=== PATIENT | female | born 2000 | race Caucasian/White ===

== ENCOUNTER 2020-04-19 22:13 | Emergency (ER) | payer OTHER ==
[2020-04-19 22:18] VITALS: TEMP 98.4; BMI 34.9
[2020-04-19] MEDS ORDERED: DEXAMETHASONE SOD PHOSPHATE 10 MG/1 ML VIAL IM ONE (22:22)
--- NOTE | 2020-04-19 22:22 | PDOC ---
Rapid Medical Evaluation Chief Complaint: Allergic Reaction Time Seen by Provider: 04/19/20 22:19 Medical Evaluation: Vital Signs Temp Pulse Resp BP Pulse Ox 98.4 F 144 H 20 142/76 97 04/19/20 22:15 04/19/20 22:15 04/19/20 22:15 04/19/20 22:15 04/19/20 22:15 04/19/20 22:20 I have performed a brief in-person evaluation of this patient. The patient presents with a chief complaint of: Patient present with feeling of allergic reaction throat closing status post eating edible with marijuana which had macadamia nuts. Patient reported allergy to nuts. Denies any other symptoms Pertinent physical exam findings: Oropharynx patent with patient very anxious. Pupil dilated bilateral . patient in no acute respiratory distress I have ordered the following: decadron, Benadryl The patient will proceed to the ED for further evaluation. Discharge Disposition - Diagnosis Allergic reaction Qualifiers: Encounter type: initial encounter Qualified Code(s): T78.40XA - Allergy, unspecified, initial encounter - Discharge Dispostion Condition at time of disposition: Stable - Referrals - Patient Instructions - Post Discharge Activity
--- OUTSIDE RECORDS SUMMARY | 2020-04-19 22:31 | XMS ---
:2000 Author Organization [facility] Care Team Providers Name Role Phone Mir John Unavailable [phone] Jaiden Johner Unavailable [phone] Jessica, Joanna R Unavailable [phone] Jessica, R Unavailable [phone] Jessica, R Unavailable [phone] Jessica, R Unavailable [phone] Hubert Unavailable [email or web address] Hubert Unavailable [email or web address] Hubert Unavailable [email or web address] Hubert Unavailable [email or web address] Kovoor Unavailable Unavailable Kovoor Unavailable Unavailable Kovoor Unavailable Unavailable Kovoor Unavailable Unavailable Kovoor Unavailable Unavailable Kovoor Unavailable Unavailable Kovoor Unavailable Unavailable Kovoor Unavailable Unavailable Kovoor Unavailable Unavailable Kovoor Unavailable Unavailable Kovoor Unavailable Unavailable Tagne Nouemssi Unavailable [phone] Tagne Nouemssi Unavailable [phone] Mikayla Unavailable Unavailable Unavailable Unavailable Julien Unavailable [phone] Julien Unavailable [phone] Ringstad Unavailable Unavailable Ringstad Unavailable Unavailable Ringstad Unavailable Unavailable Ringstad Unavailable Unavailable Ringstad Unavailable Unavailable Ringstad Unavailable Unavailable Ringstad Unavailable Unavailable Ringstad Unavailable Unavailable Ringstad Unavailable Unavailable Ringstad Unavailable Unavailable Ringstad Unavailable Unavailable Davide Unavailable [phone] Davide Unavailable [phone] Radha Unavailable Unavailable Radha Unavailable Unavailable Radha Unavailable Unavailable Radha Unavailable Unavailable Re-disclosure Warning The records that you are about to access may contain information from federally- assisted alcohol or drug abuse programs. If such information is present, then the following federally mandated warning applies: This information has been disclosed to you from records protected by federal confidentiality rules (42 CFR part 2). The federal rules prohibit you from making any further disclosure of this information unless further disclosure is expressly permitted by the written consent of the person to whom it pertains or as otherwise permitted by 42 CFR part 2. A general authorization for the release of medical or other information is NOT sufficient for this purpose. The Federal rules restrict any use of the information to criminally investigate or prosecute any alcohol or drug abuse patient.The records that you are about to access may contain highly sensitive health information, the redisclosure of which is protected by Article 27-F of the [facility] Public Health law. If you continue you may haveaccess to information: Regarding HIV / AIDS; Provided by facilities licensed or operated by the [facility] Office of Mental Health; or Provided by the [facility] Office for People With Developmental Disabilities. If such information is present, then the following [facility] mandated warning applies: This information has been disclosed to you from confidential records which are protected by state law. State law prohibits you from making any further disclosure of this information without the specific written consent of the person to whom it pertains, or as otherwise permitted by law. Any unauthorized further disclosure in violation of state law may result in a fine or custodial sentence or both. A general authorization for the release of medical or other information is NOT sufficient authorization for further disclosure. Allergies and Adverse Reactions Type Description Substance Reaction Status Data Source(s ) Propensity to Propensity to Propensity to NEXTG EN ([facility] adverse reactions adverse reactions adverse reactions [facility] (disorder) (disorder) (disorder) [place]) Family History Family Member Family Member Family Member Date of Description Data Source(s) Name Gender Status Status Unknown Male Diagnosis 10/01/2013 NEXTGEN ([facility] 12:00:00 AM [facility] Medic al [facility]) Encounters Encounter Providers Location Date Indications Data Source(s ) Attender: [facility] 02/18/2019 NEXTGEN ([facility] 01:55:00 [facility]T - Center) 02/18/2019 01:55:00 PM EDT Outpatient 02/15/2019 [facility] 09:35:00 Medical Center AM EDT Outpatient 02/15/2019 [facility] 12:00:00 Medical Center AM EDT Attender: [facility] 11/03/2018 NEXTGEN ([facility] 02:52:00 [facility] PM EDT - Center) 11/03/2018 02:52:00 PM EDT OutpatientOFFICE/ Attender: [facility] 06/30/2018 NEXTGEN ([facility] VISIT, [facility] 03:44:00 [facility] EST PM EST - Center) 06/30/2018 03:44:00 PM EST Attender: Jessi 01/13/2018 NEXT ([facility] 10:10:00 [facility] AM EDT - Center) 01/13/2018 10:10:00 AM [facility] 10/26/2017 DANIELLE N ([facility] 06:05:00 [facility] Nouemssi PM EDT - Center) 10/26/2017 06:05:00 PM EDT Attender: [facility] 10/14/2017 NEXTGEN ([facility] 05:16:00 [facility] PM EDT - Center) 10/14/2017 05:16:00 PM EDT Attender: [facility] ([place], [place]) 02/23/2017 SHEREEN EN ([facility] 03:25:00 [facility] PM EDT - Center) 02/23/2017 03:25:00 PM EDT Attender: [facility] 01/07/2017 NEXTGEN ([facility] 06:02:00 [facility] PM EDT - Center) 01/07/2017 06:02:00 PM EDT Attender: [facility] 11/01/2016 NEXT [facility] 10[facility] AM [facility]T - Center) 11/01/2016 10:34:00 AM EDT [facility] 09/30/2014 DANIELLE N ([facility] 10:47:00 [facility] AM EST - Center) 09/30/2014 10:47:00 AM [facility] 10/[facility] NEXTGE N ([facility] 11:03:00 [facility] AM EDT - Center) 10/29/2013 11:03:00 AM EDT Attender: [facility] 10/01/2013 NEXTGE N ([facility] 11:01:00 [facility] AM EST - Center) 10/01/2013 11:01:00 AM EST Attender: [facility] 03/25/2013 NEXTGE N ([facility] 11:27:00 [facility] AM EDT - Center) 03/25/2013 11:27:00 AM EDT Attender: [facility] 10/27/2012 NEXTGE N ([facility] 01:48:00 [facility] PM EDT - Center) 10/27/2012 01:48:00 PM EDT Attender: [facility] 03/20/2012 NEXTGE N ([facility] 02:34:00 [facility] PM EDT - Center) 03/20/2012 02:34:00 PM EDT Attender: [facility] 10/11/2011 NEXTGE N ([facility] 10:55:00 [facility] AM EST - Center) 10/11/2011 10:55:00 AM EST Attender: [facility] 06/21/2011 NEXTGE N ([facility] 10:23:00 [facility] AM EST - Center) 06/21/2011 10:23:00 AM EST Attender: [facility] 03/19/2011 NEXTGE N ([facility] 01:59:00 [facility] PM EDT - Center) 03/19/2011 01:59:00 PM EDT Attender: [facility] 03/05/2011 NEXTGEN ([facility] 08[facility] AM [facility]T - Center) 03/05/2011 08:28:00 AM EDT Attender: [facility] 03/29/2010 NEXTGE N ([facility] 02:43:00 [facility] PM EDT - Center) 03/29/2010 02:43:00 PM EDT Attender: [facility] 10/12/2009 NEXTGE N ([facility] 04:05:00 [facility] PM EST - Center) 10/12/2009 04:05:00 PM EST [facility] 10/14/2008 NEXTGE N ([facility] 09:04:00 [facility] AM EDT - Center) 10/14/2008 09:04:00 AM EDT Immunizations Vaccine Date Status Description Data Source(s) New in 2011. IIV4 06/30/2018 completed Influenza, Injectable, NEXTGEN ([facility] 12:00:00 AM EST Quadrivalent [facility]) Source: New Immunization Record New in 2011. 10/14/2017 12:00:00 completed Influenza, injectable , NEXTGEN ([facility] IIV4 AM EDT quadrivalent, [facility] preservative free, 3 Center) yrs or older Source: New Immunization Record Meningococcal MCV4O 01/07/2017 12:00:00 completed Meningococcal [facility]O [facility] Source: New Immunization Record meningococcal MCV4P 09/30/2014 12:00:00 AM EST completed MCV4 NEXTGEN ([facility]) Source: New Immunization Record IIV3. This vaccine 09/30/2014 12:00:00 completed Influenza PF 3+ NEXTGEN ([facility] code is one of two AM EST years [facility] which replace CVX Center) 15, influenza, split virus. Source: New Immunization Record IIV3. This is one of 10/01/2013 12:00:00 completed Flu (split) ( 3 NEXTGEN ([facility] two codes replacing AM EST yrs or older) [facility] Medical CVX 15, which is Center) being retired. Source: New Immunization Record IIV3. This is one of 10/27/2012 12:00:00 completed Flu (split) ( 3 NEXTGEN ([facility] two codes replacing AM EDT yrs or older) [facility] Medical CVX 15, which is Center) being retired. Source: New Immunization Record HPV, quadrivalent 10/11/2011 12:00:00 AM EST completed HPV NEXTGEN ([facility]) Source: New Immunization Record IIV3. This is one of 06/21/2011 12:00:00 completed Flu (split) ( 3 NEXTGEN ([facility] two codes replacing AM EST yrs or older) [facility] CVX 15, which is Center) being retired. Source: New Immunization Record HPV, quadrivalent 06/21/2011 12:00:00 AM EST completed HPV NEXTGEN ([facility]) Source: New Immunization Record meningococcal MCV4P 03/19/2011 12:00:00 completed MCV4 (11-55 yr s) NEXTGEN ([facility] AM T [facility]) Source: New Immunization Record Tdap 03/19/2011 12:00:00 AM EDT completed Tdap N EXTGEN ([facility]) Source: New Immunization Record Hep A, ped/adol, 2 03/19/2011 12:00:00 completed Hep A (ped/adol , 2 NEXTGEN ([facility] dose AM EDT dose) [facility]) Source: New Immunization Record HPV, quadrivalent 03/19/2011 12:00:00 AM EDT completed HPV NEXTGEN ([facility]) Source: New Immunization Record Hep A, ped/adol, 2 03/29/2010 12:00:00 completed Hep A (ped/adol , 2 NEXTGEN ([facility] dose AM EDT dose) [facility]) Source: New Immunization Record This code is used 10/12/2009 12:00:00 completed H1N1 injection N EXTGEN ([facility] whenever the actual [facility] formulation is not Center) determined or when aggregating all Novel H1N1 Influenza-09 immunizations for reporting to [facility]. It should not be used for seasonal influenza vaccine that is not otherwise specified. (NOS) Source: New Immunization Record varicella 10/14/2008 12:00:00 AM EDT completed varicella N EXTGEN ([facility]) Source: New Immunization Record DTaP 02/02/2004 12:00:00 AM completed diphtheria, tetanu s NEXTGEN ([facility] toxoids and acellular [facility] pertussis vaccine Center) Source: Other Registry MMR 02/02/2004 12:00:00 AM EDT completed measles, mumps and NEXTGEN ([facility] rubella virus vaccine Medica l Center) Source: Other Registry IPV 02/02/2004 12:00:00 AM completed poliovirus vaccine , NEXTGEN ([facility] inactivated [facility]) Source: Other Registry Hib, unspecified 05/18/2003 12:00:00 completed Haemophilus NEXT GEN ([facility] formulation AM EDT influenzae type b [facility] dical vaccine, conjugate Center) unspecified formulation Source: Other Registry DTaP 05/05/2001 12:00:00 AM completed diphtheria, tetanu s NEXTGEN ([facility] EDT toxoids and acellular [facility] pertussis vaccine Center) Source: Other Registry Pneumococcal 05/05/2001 12:00:00 completed pneumococcal NEXTGEN ([facility] conjugate PCV 13 AM EDT conjugate vaccine, [place] [address] valent Center) Source: Other Registry IPV 05/05/2001 12:00:00 AM completed poliovirus vaccine , NEXTGEN ([facility] inactivated [facility]) Source: Other Registry MMR 03/26/2001 12:00:00 AM EDT completed MMR N EXTGEN ([facility]) Source: Other Registry varicella 03/26/2001 12:00:00 AM EDT completed Varicella N EXTGEN ([facility]) Source: Other Registry This code applies 2000 completed hepatitis B vaccine, NE XTGEN to any standard 12:00:00 AM EDT pediatric or ([facility] pediatric pediatric/adolescent [facility] Hepatitis B Center) vaccine. It should not be used for the 2-dose hepatitis B schedule for adolescents (11-15 year olds). It requires Merck's Recombivax HB adult formulation. Use code 43 for that vaccine. Source: Other Registry Hib, unspecified 2000 12:00:00 completed Haemophilus NEXT GEN ([facility] formulation AM EDT influenzae type b [facility] dical vaccine, conjugate Center) unspecified formulation Source: Other Registry Pneumococcal 2000 12:00:00 completed pneumococcal NEXTGEN ([facility] conjugate PCV 13 AM EDT conjugate vaccine, [facility] 13 valent Center) Source: Other Registry DTaP 2000 12:00:00 AM completed diphtheria, tetanu s NEXTGEN ([facility] EST toxoids and acellular [facility] pertussis vaccine Center) Source: Other Registry Pneumococcal 2000 12:00:00 completed pneumococcal NEXTGEN ([facility] conjugate PCV 13 AM EST conjugate vaccine, [facility] 13 valent Center) Source: Other Registry DTaP 2000 12:00:00 AM completed diphtheria, tetanu s NEXTGEN ([facility]) Source: Other Registry This code applies 2000 completed hepatitis B vaccine, NE XTGEN to any standard 12:00:00 AM EST pediatric or ([facility] pediatric pediatric/adolescent [facility] Hepatitis B Center) vaccine. It should not be used for the 2-dose hepatitis B schedule for adolescents (11-15 year olds). It requires Merck's Recombivax HB adult formulation. Use code 43 for that vaccine. Source: Other Registry Hib, unspecified 2000 12:00:00 completed Haemophilus NEXT GEN ([facility] formulation AM EST influenzae type b [facility] dical vaccine, conjugate Center) unspecified formulation Source: Other Registry pneumococcal 2000 12:00:00 completed pneumococcal NEXTGEN ([facility] conjugate PCV 7 AM EST conjugate vaccine, [address] [place] [address] valent Center) Source: Other Registry IPV 2000 12:00:00 AM completed poliovirus vaccine , NEXTGEN ([facility] EST inactivated [facility]) Source: Other Registry DTaP 2000 12:00:00 AM completed DTaP (younger than 7 [facility] ([facility] EDT yrs) Medical [place]) Source: Other Registry This code applies to 2000 12:00:00 completed Hep B (ped/ad ol, 3 NEXTGEN ([facility] any standard AM EDT dose) [facility] pediatric formulation [place] ) of Hepatitis B vaccine. It should not be used for the 2-dose hepatitis B schedule for adolescents (11-15 year olds). It requires Merck's Recombivax HB adult formulation. Use code 43 for that vaccine. Source: Other Registry Hib (PRP-T) 2000 12:00:00 AM completed Haemophilus influe nzae NEXTGEN ([facility] EDT type b vaccine, PRP-T [facility] conjugate [place]) Source: Other Registry IPV 2000 12:00:00 AM EDT completed Polio, Inactiv e [facility] ([facility]) Source: Other Registry Medications Medication Brand Start Product Dose Route Administrative Pharmacy [facility] Indications Reaction Description Data Name Date Form Instructions Instructions Source(s) ferrous ferrou .00 ORAL active take 1 NEXT GEN sulfate 325 s 2018 {tbl} tablet by (S aint MG Oral sulfat 12:00: oral route Ellie sephs Tablet e 325 00 AM every day Medica l ferrous mg (65 EST Center) sulfate 325 mg mg (65 mg iron) iron) tablet tablet ferrous ferrou .00 ORAL complet take 1 NEX TGEN sulfate 325 s 2017 {tbl} ed tablet by (S aint MG Oral sulfat 12:00: oral route Ellie sephs Tablet e 325 00 AM every day Medica l ferrous mg (65 EDT Center) sulfate 325 mg mg (65 mg iron) iron) tablet tablet Ortho-Cycle {21 .00 ORAL complet Ortho-Cy clen NEXTGEN n (28) 0.25 (Ethin 2017 {tbl} ed 28 Day Pac k ([facility] mg-35 mcg yl 12:00: [facility] tablet Estrad 00 AM Medical iol EDT Center) 0.035 MG / norges timate 0.25 MG Oral Tablet ) / 7 (Inert Ingred ients 1 MG Oral Tablet ) } Pack Clindamycin clinda TOPICA complet appl y gram NEXTGEN 0.01 MG/MG mycin 2016 gram L ed by topical (S aint Topical Gel 1 % 12:00: route 2 Triston ephs clindamycin topica 00 AM times ever y Medical 1 % topical l gel EDT day a thin C enter) gel layer to the affected area(s) 200 ACTUAT Ventol 01/07/ active 200 ACTU AT NEXTGEN Albuterol in HFA 2016 Albuterol (Sa int 0.09 90 12:00: 0.09 [facility] MG/ACTUAT mcg/ac 00 AM MG/ACTUAT Me dical Metered tuatio EDT Metered Dose Ce nter) Dose n Inhaler Inhaler aeroso [Ventolin] [Ventolin] l Ventolin inhale HFA 90 r mcg/actuati on aerosol inhaler Ibuprofen ibupro ORAL complet take 1 N EXTGEN 400 MG Oral fen 2016 {tbl} ed tablet by (S aint Tablet 400 mg 12:00: oral route Triston ephs ibuprofen tablet 00 AM every 4 - 6 Medical 400 mg EDT hours as Center) tablet needed Clindamycin Cleoci 10/29/ TOPICA complet Clin damycin NEXTGEN 0.01 MG/MG n T 1 2013 L ed 0.01 MG/MG (S aint Topical Gel % 12:00: Topical Gel [facility] [Cleocin-T] topica 00 AM [Cleocin-T ] Medical Cleocin T 1 l gel EDT Center) % topical gel Benzoyl benzoy 10/29/ TOPICA complet wash by NEXTGEN Peroxide 50 l 2013 ed topical ([facility] t MG/ML peroxi 12:00: route 2 [facility] Medicated de 5 % 00 AM times every Medical Liquid Soap topica EDT day the [address]) benzoyl l affected peroxide 5 cleans area(s) % topical er cleanser Insurance Providers Payer name Policy type Policy ID Covered Covered green party's Policy P romaine / Coverage green party ID relationship to Gracia Inf ormation type gracia AFFINITY [id number] SP [id number] ESSENTIAL PLAN 1 2 AFFINITY O [id number] HEALTH PLAN Problems, Conditions, and Diagnoses Code Display Name Description Problem Type Effective Dates Data Source(s) 56659061 Iron deficiency Iron deficiency Problem 10/26/2017 NEXT GEN ([facility] anemia anemia 12:00:[address] [facility]) [id number] Obesity Obesity Problem 01/07/2017 NEXTGEN ([facility] 12:00:00 AM [facility]) [id number] Scoliosis Scoliosis Problem 01/07/2017 NEXTGEN ([facility] deformity of deformity [facility]) Surgeries/Procedures Procedure Description Date Indications Data Source(s) OFFICE/OUTPATIENT VISIT, 06/30/2018 NEX TGEN ([facility] EST 12:00:00 AM EST [facility] - 06/30/2018 [place]) 12:00:00 AM EST Influenza, Injectable, 3 06/30/2018 NEX TGEN ([facility] Yrs Or Older 12:00:00 AM [facility] - 06/30/2018 [place]) 12:00:00 AM EST Immunization 06/30/2018 NEXTGEN ([facility] Administration 12:00:00 AM EST [facility] dical - 06/30/2018 [place]) 12:00:00 AM EST Social History Code Duration Value Status Description Data Source(s ) Caffeine Use 06/30/2018 completed NEXTGEN (Pro nt Details 12:00:00 AM EST [facility]) Smoking 06/30/2018 Unknown if completed Unknown if ever NEXTGEN ( [facility] 12:00:00 AM EST ever smoked smoked [facility]) Smoking Unknown if completed Unknown if ever Psychiatric ever smoked smoked Medical Cente r Alcohol Use completed NEXTGEN ([facility] t Details [facility] Medica l Center) Vital Signs ID Date Data Source UNK Name Value Range Interpretation Code Description Data Source(s) Oxygen saturation 97 % 97 % [facility] ([facility] in Arterial blood [facility] by Pulse oximetry Center) Body mass index 98 % 98 % [facility] (BMI) [Percentile] [facility] Per age and gender Center ) Body mass index 38.68 kg/m2 Overweight 38.68 kg/m2 [facility] (BMI) [Ratio] [facility]) Respiratory rate 20 /min 20 /min [facility] ([facility]) Body temperature 37.17 Ratna 37.17 Ratna [facility] ([facility]) Heart rate 88 /min 88 /min [facility] ([facility]) Diastolic blood 71 mm[Hg] 71 mm[Hg] [facility] ( [facility] pressure [facility]) Systolic blood 139 mm[Hg] 139 mm[Hg] [facility] ( aint [facility]) Body weight 102.149 kg 102.149 kg [facility] ([facility]) Body height 162.51 cm 162.51 cm [facility] ([facility]) Patient Treatment Plan of Care Planned Activity Planned Date Details Description Data Source (s) ferrous sulfate 325 MG 06/30/2018 12:00:00 [facility] ([facility] Oral Tablet [facility]) ferrous sulfate 325 MG 10/26/2017 12:00:00 [facility] ([facility] Oral Tablet [facility]) Ortho-Cyclen (28) 0.25 10/14/2017 12:00:00 [facility] mg-35 mcg tablet [facility]) 200 ACTUAT Albuterol 01/07/2017 12:00:00 NEXTGEN ([facility] 0.09 MG/ACTUAT Metered AM T [facility]et hs Medical Dose Inhaler [Ventolin] Cent er) Ibuprofen 400 MG Oral 01/07/2017 12:00:00 [facility] ([facility] Tablet [facility]) Clindamycin 0.01 MG/MG 01/07/2017 12:00:00 [facility] ([facility] Topical Gel [facility]) Clindamycin 0.01 MG/MG 10/29/2013 12:00:00 NEXTGEN ([facility] Topical Gel [Cleocin-T] AM [facility]) Benzoyl Peroxide 50 10/29/2013 12:00:00 N EXTGEN ([facility] MG/ML Medicated Liquid [facility])
--- NOTE | 2020-04-19 22:51 | PDOC ---
History of Present Illness - General Chief Complaint: Allergic Reaction Stated Complaint: ALLERGIC REACTION Time Seen by Provider: 04/19/20 22:19 - History of Present Illness Initial Comments: HPI Pt is a 20yo F with PMH asthma who presents with throat swelling. Pt states that she used a marijuana edible made of chocolate and macadamia nuts that she received from her brother at 7:50pm. States that two hours later, her throat felt like it was tight and she reported tachypnea and felt SOB. Currently states that she still feels like her throat is tight, but denies tachypnea and SOB. States that she took 2 Benadryl [employer] with minimal improvement in symptoms. States that she has had macadamia nuts in the past without any reaction. Denies f/c, chest pain, SOB, abdominal pain, n/v/d, itchiness, lightheadedness, dizziness PCP: denies PMH: asthma Meds: denies Allergies: NKDA Social: denies tobacco, etoh use. Denies other illicit substance use. Review of Systems CONSTITUTIONAL: denies fever, chills, diaphoresis, generalized weakness, malaise, loss of appetite HEENT: reports throat swelling; denies rhinorrhea, nasal congestion, sore throat, difficulty swallowing, mouth swelling, ear pain, eye pain, visual changes, vocal changes CARDIOVASCULAR: reports palpitations; denies chest pain, syncope, irregular heart rate, lightheadedness, peripheral edema RESPIRATORY: denies cough, shortness of breath, wheezing, hemoptysis GASTROINTESTINAL: denies abdominal pain, nausea, vomiting, diarrhea, constipation, GENITOURINARY: denies dysuria, frequency, hematuria, flank pain, MUSCULOSKELETAL: denies myalgia, arthralgia HEMATOLOGIC/IMMUNOLOGIC: denies easy bleeding, easy bruising ENDOCRINE: denies unexplained weight gain, unexplained weight loss NEUROLOGIC: denies headache, loss of consciousness, focal weakness or paresthesias, dizziness, mental status changes, bladder or bowel incontinence SKIN: denies rash, itching, pallor Physical Exam General: awake, alert, fully oriented, in no acute distress, well developed, well nourished Head: normocephalic, atraumatic Eyes: PERRL, EOMI, anicteric sclera, conjunctiva injected ENT: hearing grossly normal, oropharynx clear without exudates, no nasal congestion, moist mucous membranes, no uvular/tongue swelling. No appreciable facial swelling. No stridor@throat Neck: supple, normal ROM, no LAD, JVD or masses Lung: equal breath sounds b/l, CTA b/l, no crackles, wheezes; no distress, speaks full sentences Heart: tachycardic, normal S1, S2, no murmurs appreciated Abdomen: soft, non tender, normoactive bowel sounds, no guarding, rebound, masses Extremities: normal ROM, no edema, no erythema or tenderness, DP/PT pulses 2+ and symmetric Neuro: CN2-12 grossly intact, moves all extremities, normal speech, sensation intact Skin: warm, dry, normal skin turgor, capillary refill <2 seconds, no rashes or lesions noted MDM Pt is a 20yo F with PMH asthma who presents with throat swelling. Vitals significant for: tachycardia DDx including but not limited to: intoxication, allergic reaction Workup: ekg Patient signed out to night team Pending EKG Will likely discharge home Past History - Medical History Asthma: Yes COPD: No - Reproductive History Is Patient Now?: No - Psycho-Social/Smoking History Smoking History: Never smoked - Substance Abuse Hx (Audit-C & DAST Scrn) How often the patient has a drink containing alcohol: Never Score: In Men: 4 or > Positive; In Women: 3 or > Positive: 0 Screen Result (Pos requires Nsg. Audit-10AR): Negative In the last yr the pt used illegal drug/Rx for NonMed reason: Yes Score: Yes response is considered Positive: 1 Screen Result (Positive result requires Nsg. DAST-10): Positive *Physical Exam - Vital Signs Last Vital Signs Temp Pulse Resp BP Pulse Ox 98.4 F 144 H 20 142/76 97 04/19/20 22:15 04/19/20 22:15 04/19/20 22:15 04/19/20 22:15 04/19/20 22:15 Discharge - Discharge Information Problems reviewed: Yes Clinical Impression/Diagnosis: Intoxication by drug Qualifiers: Complication of substance-induced condition: uncomplicated Qualified Code(s): F19.920 - Other psychoactive substance use, unspecified with intoxication, uncomplicated Condition: Good Disposition: HOME - Follow up/Referral - Patient Discharge Instructions Additional Instructions: You were seen in the emergency department for concern for allergic reaction. I do not think you had an allergic reaction, this is probably a reaction to the substance you used. In the ED, you were evaluated with physical exam. Your physical exam was normal - there was no throat swelling, facial swelling, nausea, vomiting, low blood pressure. We monitored you and you were stable for your entire ED stay. You do not appear to be an acute need for immediate hospitalization. You were given a referral to our clinic because you said you haven't seen a doctor recently. Call tomorrow to schedule an appointment. Come back to the ER immediately with any new or worsening concerns, such as shortness of breath, face/tongue/throat swelling, lightheadedness, or chest pain. Thank you for coming to the [facility] ER. We hope you feel better soon! - Post Discharge Activity
[2020-04-19] MEDS ORDERED: SODIUM CHLORIDE 1,000 ML IV STA (23:17)
--- NOTE | 2020-04-19 23:58 | PDOC ---
*Physical Exam - Vital Signs Last Vital Signs Temp Pulse Resp BP Pulse Ox 98.4 F 144 H 20 142/76 97 04/19/20 22:15 04/19/20 22:15 04/19/20 22:15 04/19/20 22:15 04/19/20 22:15 ED Treatment Course - Medications Given in the ED: ED Medications Discontinued Medications Generic Name Dose Route Start Last Admin Trade Name Larissa PRN Reason Stop Dose Admin Dexamethasone Sodium Phosphate 10 mg 04/19/20 22:22 04/19/20 23:20 Decadron Injection - IM 04/19/20 22:23 Not Given ONCE ONE Diphenhydramine HCl 25 mg 04/19/20 22:22 04/19/20 23:20 Benadryl Injection - IM 04/19/20 22:23 Not Given ONCE ONE Medical Decision Making - Medical Decision Making 04/19/20 23:54 20y F presenting to ER for feeling like she was having an allergic reaction to an edible which was chocolate with macadamia nuts. She has no history of allergy to nuts. Pt is tachycardic. do not suspect allergic reaction: has no history of allergy to consumed products. likely intoxication. does not require benadryl (pt took 2 pills already) or decadron. pt refusing iv fluids at this time. will monitor. likely dc home. Discharge - Discharge Information Problems reviewed: Yes Clinical Impression/Diagnosis: Intoxication by drug Qualifiers: Complication of substance-induced condition: uncomplicated Qualified Code(s): F19.920 - Other psychoactive substance use, unspecified with intoxication, uncomplicated Condition: Good Disposition: HOME - Admission No - Follow up/Referral - Patient Discharge Instructions Additional Instructions: You were seen in the emergency department for concern for allergic reaction. I do not think you had an allergic reaction, this is probably a reaction to the substance you used. In the ED, you were evaluated with physical exam. Your physical exam was normal - there was no throat swelling, facial swelling, nausea, vomiting, low blood pressure. We monitored you and you were stable for your entire ED stay. You do not appear to be an acute need for immediate hospitalization. You were given a referral to our clinic because you said you haven't seen a doctor recently. Call tomorrow to schedule an appointment. Come back to the ER immediately with any new or worsening concerns, such as shortness of breath, face/tongue/throat swelling, lightheadedness, or chest pain. Thank you for coming to the [facility] ER. We hope you feel better soon! - Post Discharge Activity Vital Signs - Vital Signs Pulse Rate: 92
[2020-04-20 00:10] VITALS: BP 136/70
--- NOTE | 2020-04-20 00:27 | PDOC ---
Attending Attestation - Resident Resident Name: Mandy Finney - ED Attending Attestation I have performed the following: I have examined & evaluated the patient, The case was reviewed & discussed with the resident, I agree w/resident's findings & plan, Exceptions are as noted - HPI HPI: 04/20/20 03:06 See resident HPI - Physicial Exam PE: 04/20/20 03:06 Agree with documented exam - Medical Decision Making 04/20/20 03:06 20F sensation of throat closing, palpitations after ingesting marijuana edible with macademia nuts Has had macademia nuts in the past w/o issue Prior inhalational marijuana but never edible f/u ekg observe, re-eval dispo per clinical course, likely dc Discharge - Discharge Information Problems reviewed: Yes Clinical Impression/Diagnosis: Intoxication by drug Qualifiers: Complication of substance-induced condition: uncomplicated Qualified Code(s): F19.920 - Other psychoactive substance use, unspecified with intoxication, uncomplicated Condition: Good Disposition: HOME - Follow up/Referral - Patient Discharge Instructions Additional Instructions: You were seen in the emergency department for concern for allergic reaction. I do not think you had an allergic reaction, this is probably a reaction to the substance you used. In the ED, you were evaluated with physical exam. Your physical exam was normal - there was no throat swelling, facial swelling, nausea, vomiting, low blood pressure. We monitored you and you were stable for your entire ED stay. You do not appear to be an acute need for immediate hospitalization. You were given a referral to our clinic because you said you haven't seen a doctor recently. Call tomorrow to schedule an appointment. Come back to the ER immediately with any new or worsening concerns, such as shortness of breath, face/tongue/throat swelling, lightheadedness, or chest pain. Thank you for coming to the [facility] ER. We hope you feel better soon! - Post Discharge Activity
[2020-04-20 01:38] VITALS: PULSE 92
--- NOTE | 2020-04-20 12:33 | EKG ---
Test Reason : Blood Pressure : / mmHG Vent. Rate : 124 BPM Atrial Rate : 124 BPM P-R Int : 138 ms QRS Dur : 080 ms QT Int : 308 ms P-R-T Axes : 064 064 045 degrees QTc Int : 442 ms SINUS TACHYCARDIA OTHERWISE NORMAL ECG NO PREVIOUS ECGS AVAILABLE Confirmed by CASI JACKSON MD ([id number]) on 04/20/2020 12:33:36 PM Referred By: Confirmed By:CASI JACKSON MD
== END 2020-04-20 01:56 | disposition home or self-care (01) ==
LOC: JER 22:13
PROC: 3E0337Z Introduction of Electrolytic and Water Balance Substance into Peripheral Vein, Percutaneous Approach (ICD-10-PCS; principal; 2020-04-19)
DX: T78.40XA Allergy, unspecified, initial encounter (principal); F19.920 Other psychoactive substance use, unspecified with intoxication, uncomplicated
CPT/HCPCS: 93005; 93010; 99284-25

== ENCOUNTER 2021-12-26 03:30 | Emergency (ER) | payer OTHER ==
[2021-12-26 04:03] VITALS: BP 138/93; PULSE 88; TEMP 98.2; BMI 38.2
[2021-12-26] MEDS ORDERED: LIDOCAINE HCL 2% JELLY 10 ML CARTRIDGE ONE (04:41)
== END 2021-12-26 05:48 | disposition home or self-care (01) ==
LOC: JER 03:30
DX: K59.00 Constipation, unspecified (principal)
CPT/HCPCS: 93005; 93010; 99282-25

== ENCOUNTER 2023-01-26 13:48 | Emergency (ER) | payer OTHER ==
[2023-01-26 14:01] VITALS: BP 127/70; PULSE 75; RESP 18; TEMP 99; BMI 25.1
== END 2023-01-26 15:37 | disposition home or self-care (01) ==
LOC: JERFT 13:48
DX: R21 Rash and other nonspecific skin eruption (principal); L42 Pityriasis rosea
CPT/HCPCS: 99283-25

== ENCOUNTER 2025-04-04 21:43 | Emergency (ER) | payer OTHER ==
[2025-04-04 21:47] VITALS: BP 115/50; PULSE 81; RESP 18; TEMP 98.2; BMI 21.4
[2025-04-04 23:46] LABS: URINE APPEARANCE CLOUDY; URINE BILIRUBIN NEGATIVE (NEGATIVE); URINE COLOR YELLOW; URINE GLUCOSE (UA) NEGATIVE (NEGATIVE); URINE KETONE NEGATIVE (NEGATIVE); URINE LEUK ESTERASE NEGATIVE (NEGATIVE); URINE NITRITE NEGATIVE (NEGATIVE); URINE PROTEIN NEGATIVE (NEGATIVE); URINE UROBILINOGEN 0.2 mg/dL (0.2-1.0)
[2025-04-04 23:48] LABS: HCG,QUALITATIVE URINE Negative
== END 2025-04-05 00:21 | disposition home or self-care (01) ==
LOC: JER 21:43
DX: N89.8 Other specified noninflammatory disorders of vagina (principal)
CPT/HCPCS: 36415; 81003; 84703; 87086; 87491; 87591; 87661; 99283-25